=== PATIENT | female | born 2000 | race Two or more races ===

== ENCOUNTER 2019-02-06 07:33 | Inpatient (IN) | payer MEDICAID ==
[2019-02-06] MEDS ORDERED: OXYTOCIN/NORMAL SALINE 20 UNIT/1,000 ML RTUINJ IV PRN ×2 (08:23→21:38)
[2019-02-06] MEDS ORDERED: RINGERS SOLUTION,LACTATED 300 ML IV ONE (08:23)
[2019-02-06] MEDS ORDERED: PENICILLIN G POTASSIUM 5,000,000 UNIT in DEXTROSE 5%-WATER 100 ML IV ONE (08:25)
[2019-02-06] MEDS ORDERED: PENICILLIN G-K 5 MILLION UNIT VIAL ONE ×3 (08:34→17:29)
[2019-02-06] MEDS: RINGERS SOLUTION,LACTATED 1,000 ML IV PRN ×2 (08:38→17:59)
[2019-02-06 08:47] LABS: APPEARANCE,URINE CLEAR; BILIRUBIN,URINE NEGATIVE (NEGATIVE); COLOR,URINE YELLOW; GLUCOSE, URINE 50 mg/dL (NEGATIVE); KETONES,URINE NEGATIVE (NEGATIVE); LEUKOCYTE ESTERASE,URINE NEGATIVE (NEGATIVE); NITRITE,URINE NEGATIVE (NEGATIVE); PROTEIN,URINE NEGATIVE (NEGATIVE); URINE SPECIFIC GRAVITY 1.015; UROBILINOGEN,URINE NEGATIVE mg/dL (<2.0)
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
[2019-02-06 09:10] LABS: URINE AMPHETAMINES SCREEN NEGATIVE; URINE BENZODIAZEPINES SCREEN NEGATIVE; URINE COCAINE SCREEN NEGATIVE; URINE METHADONE SCREEN NEGATIVE; URINE PHENCYCLIDINE SCREEN NEGATIVE
[2019-02-06 09:10] LABS: ABSOLUTE MONOCYTES (AUTO) 0.6 10^3/uL (0.1-1.4); ABSOLUTE NEUT (AUTO) 6.1 10^3/uL (1.7-8.2); BASOPHILS % (AUTO) 0.2 % (0-2); EOSINOPHILS % (AUTO) 0.6 % (0-6); HEMOGLOBIN 10.1 g/dL (12.0-15.5); LYMPHOCYTES % (AUTO) 13.3 % (13-45); MEAN CORPUSCULAR HEMOGLOBIN 28.4 pg (27.0-33.4); MEAN CORPUSCULAR HGB CONC 33.5 g/dL (32.0-36.0); MEAN CORPUSCULAR VOLUME 85 fl (80-97); MONOCYTES % (AUTO) 8.1 % (3-13); PLATELET COUNT 155 10^3/uL (150-450); RED BLOOD COUNT 3.54 10^6/uL (3.72-5.28); RED CELL DISTRIBUTION WIDTH 13.2 % (11.5-14.0); SEGMENTED NEUTROPHILS % (AUTO) 77.8 % (42-78); TOTAL CELLS COUNTED % (AUTO) 100 %; WHITE BLOOD COUNT 7.9 10^3/uL (4.0-10.5)
[2019-02-06] MEDS ORDERED: MISOPROSTOL 0.2 MG TABLET ONE (09:14)
[2019-02-06] MEDS ORDERED: LIDOCAINE 1% INJ-PF (10 MG/ML) 30 ML SDV ONE (09:14)
[2019-02-06] MEDS ORDERED: OXYTOCIN 10 UNIT/ML VIAL ONE (09:14)
[2019-02-06 09:15] LABS: URINE BARBITURATES SCREEN UNCONFIRMED POSITIVE; URINE MARIJUANA (THC) SCREEN UNCONFIRMED POSITIVE
[2019-02-06] MEDS ORDERED: OXYTOCIN/NORMAL SALINE 20 UNIT/1,000 ML RTUINJ ONE (09:15)
[2019-02-06] MEDS: PENICILLIN G POTASSIUM 2,500,000 UNIT in DEXTROSE 5%-WATER 50 ML IV SCH ×3 (12:30→22:39)
[2019-02-06] MEDS ORDERED: BUPIVACAINE HCL 0.25 % INJ/PF (2.5 MG/1 ML) 30 ML VIAL ONE (13:01)
[2019-02-06] MEDS ORDERED: PHENYLEPHRINE HCL INJ/PF 10 MG/1 ML SDV ONE (13:01)
[2019-02-06] MEDS ORDERED: FENTANYL CITRATE INJ/PF 100 MCG/2 ML AMPUL ONE (13:01)
[2019-02-06] MEDS ORDERED: EPHEDRINE SULFATE INJ 50 MG/1 ML AMPULE ONE (13:01)
[2019-02-06] MEDS ORDERED: FENTANYL/BUPIVACAINE/NS/PF 300 MCG/150 ML RTUINJ EPI ONE (13:01)
[2019-02-06] MEDS ORDERED: ACETAMINOPHEN WITH CODEINE #3 TABLET PO PRN (21:38)
[2019-02-06] MEDS ORDERED: MAGNESIUM HYDROXIDE SUSP 30 ML UDCUP PO PRN (21:38)
[2019-02-06] MEDS ORDERED: PROMETHAZINE HCL 25 MG TABLET PO PRN (21:38)
[2019-02-06] MEDS ORDERED: DIPH/PERTUSS(ACELL)/TETANUS VAC/PF 0.5 ML SYR (>=10YO) IM PRN (21:38)
[2019-02-06] MEDS ORDERED: ZOLPIDEM TARTRATE 5 MG TABLET PO PRN (21:38)
[2019-02-06] MEDS ORDERED: MEASLES,MUMPS&RUBELLA VACC/PF 0.5 ML VIAL SUBCUT PRN (21:38)
[2019-02-06] MEDS ORDERED: ACETAMINOPHEN 650 MG SUPP.RECT PR PRN (21:38)
[2019-02-06] MEDS ORDERED: DIPHENHYDRAMINE HCL 25 MG CAPSULE PO PRN (21:38)
[2019-02-06] MEDS ORDERED: PROMETHAZINE HCL 25 MG SUPP.RECT PR PRN (21:38)
[2019-02-06] MEDS ORDERED: PROMETHAZINE HCL INJ 25 MG/1 ML VIAL IV PRN (21:38)
[2019-02-06] MEDS ORDERED: PSEUDOEPHEDRINE HCL 30 MG TABLET PO PRN (21:38)
[2019-02-06] MEDS ORDERED: DIBUCAINE 1% OINTMENT 56 GM TP PRN (21:38)
[2019-02-06] MEDS ORDERED: NA PHOS,M-B/NA PHOS,DI-BA (ADULT) 133 ML ENEMA PR PRN (21:38)
[2019-02-06] MEDS ORDERED: BENZOCAINE/MENTHOL AEROSOL SPRAY 56 ML TOP PRN (21:38)
[2019-02-06] MEDS ORDERED: GLYCERIN/WITCH HAZEL LEAF 1 EACH MED..WIPE TP PRN (21:38)
[2019-02-06] MEDS ORDERED: FAMOTIDINE 20 MG TABLET ONE (22:42)
[2019-02-06] MEDS ORDERED: IBUPROFEN 800 MG TABLET ONE (22:43)
[2019-02-06] MEDS: FAMOTIDINE 20 MG TABLET PO SCH (22:45)
[2019-02-06] MEDS: IBUPROFEN 800 MG TABLET PO SCH (22:45)
--- NOTE | 2019-02-07 00:29 | Delivery Summary ---
Del Sum A-C Datetime Report Generated by CPN: 02/07/2019 00:29 DELIVERY PERSONNEL DELIVERY PERSONNEL: [id number] Delivery Doctor:: Christine Fleming MD Anesthesiologist:: Cora Dumont MD Labor and Delivery Nurse:: Catalina Presley RNpeoplesoft financial developer Nurse:: Adriana Rodriguez RN Repair Weaver/CAPTAIN/AIRLINE PILOT: Janaher Delgado, ST MATERNAL INFORMATION Delivery Anesthesia: Epidural Medications After Delivery: Pitocin Bolus-Please Comment Meds After Delivery Comment: pitocin 20 units in 1 L NS bolusing per order Estimated Blood Loss (ml): 150 Delivery QBL: 150 Delivery QBL Comment: 150 Maternal Complications: None Provider Comments: VMI delivered in JONATHAN presentation. No nuchal but foot cord. Shoulders and body delivered without difficulty. Cord doubly clamped and cut. placenta delivered intact spontaneously. FF at U. right labial laceration repaired for hemostasis. Left labial hemostatic. Good hemostasis. Mother and baby stable upon provider leaving the room. LABOR SUMMARY EDC: 02/11/2019 00:00 No. Babies in Womb: 1 Attempted: No Labor Anesthesia: Epidural LABOR INFORMATION Reason for Induction: Polyhydramnios Onset of Labor: 02/06/2019 13:00 Complete Dilatation: 02/06/2019 20:34 Other Ripening Agents: pitocin Oxytocin: Induction Group B Beta Strep: POSITIVE Antibiotics # of Doses: 3 Antibiotics Time of Last Dose: 1730 Name of Antibiotic Given: PCN Steroids Given: None Reason Steroids Not Administered: Not Applicable MEMBRANES Membranes Rupture Method: Artificial Rupture of Membranes: 02/06/2019 12:19 Length of Rupture (hr): 8.68 Amniotic Fluid Color: Clear Amniotic Fluid Amount: Small Amniotic Fluid Odor: Foul STAGES OF LABOR Stage 1 hr: 7 Stage 1 min: 34 Stage 2 hr: 0 Stage 2 min: 26 Stage 3 hr: 0 Stage 3 min: 2 Total Time in Labor hr: 8 Total Time in Labor min: 2 VAGINAL DELIVERY Episiotomy: None Laceration #1: Vaginal Laceration Extension #1: N/A Laceration Repair: Yes Laceration Repair Note: right labial repaired. left labial/vaginal hemostatic. Sponge Count Correct: N/A Sharps Count Correct: N/A CSECTION DELIVERY Primary Indication: N/A Secondary Indication: N/A CSection Incidence: N/A Labor: N/A Elective: N/A CSection Incision: N/A BABY A INFORMATION Infant Delivery Date/Time: 02/06/2019 21:00 Method of Delivery: Vaginal Born in Route : No : N/A Forceps: N/A Vacuum Extraction: N/A Shoulder Dystocia : No PRESENTATION/POSITION BABY A Presentation: Cephalic Cephalic Presentation: Vertex Vertex Position: Left Occipital Anterior Breech Presentation: N/A PLACENTA INFORMATION BABY A Placenta Delivery Time : 02/06/2019 21:02 Placenta Method of Delivery: Spontaneous Placenta Status: Delivered SCORES BABY A Heart Rate 1 min: >100 bpm Resp Effort 1 min: Good Cry Reflex Irritability 1 min: Cough or Sneeze or Pulls Away Muscle Tone 1 min: Active Motion Color 1 min: Blue/Pale Resuscitation Effort 1 min: Tactile Stimulation SCORE 1 MIN: 8 Heart Rate 5 min: >100 bpm Resp Effort 5 min: Good Cry Reflex Irritability 5 min: Cough or Sneeze or Pulls Away Muscle Tone 5 min: Active Motion Color 5 min: Blue/Pale Resuscitation Effort 5 min: Tactile Stimulation SCORE 5 MIN: 8 INFORMATION BABY A Gestational Age at Delivery: 39.2 Gestational Status: Full Term- 39- 40.6 Weeks Outcome : Liveborn Condition : Stable Infant Sex: Male IDENTIFICATION BABY A Infant Verification Date/Time: 02/06/2019 21:21 ID Band Number: [id number] Mother's Name Verified: Yes Infant RN Verifying Infant: Lilibeth Rodriguez RN Additional Verifying Personnel: Jeison St RN WEIGHT/LENGTH BABY A Birthweight (gm): 3830 Weight (lb): 8 Weight (oz): 7 Length (in): 20.50 Length (cm): 52.07 CORD INFORMATION BABY A No. Cord Vessels: 3 Nuchal Cord : N/A Cord Blood Taken: Yes-For Storage (Mom's Blood type +) Infant Suction: Mouth; Nose ASSESSMENT BABY A Skin to Skin: Yes BABY B INFORMATION : N/A SIGNATURES Signature: Electronically signed by Christine Fleming MD ([facility] [place]) on 02/06/2019 at 21:51 with User ID: [email or web address] : I was personally available for consultation and serving as supervising physician for the MLP.
[2019-02-07] MEDS: IBUPROFEN 800 MG TABLET PO SCH ×3 (06:23→22:18)
[2019-02-07 07:28] LABS: HEMATOCRIT 29.9 % (36.0-47.0); HEMOGLOBIN 9.9 g/dL (12.0-15.5); MEAN CORPUSCULAR HEMOGLOBIN 28.2 pg (27.0-33.4); MEAN CORPUSCULAR HGB CONC 33.1 g/dL (32.0-36.0); MEAN CORPUSCULAR VOLUME 85 fl (80-97); PLATELET COUNT 139 10^3/uL (150-450); RED BLOOD COUNT 3.52 10^6/uL (3.72-5.28); RED CELL DISTRIBUTION WIDTH 13.1 % (11.5-14.0); WHITE BLOOD COUNT 11.5 10^3/uL (4.0-10.5)
[2019-02-07] MEDS: PENICILLIN G POTASSIUM 2,500,000 UNIT in DEXTROSE 5%-WATER 50 ML IV SCH (09:25)
[2019-02-07] MEDS: FERROUS SULFATE 325 MG TABLET PO SCH ×2 (09:28→17:33)
[2019-02-07] MEDS: ACETAMINOPHEN WITH CODEINE #3 TABLET PO PRN (09:28)
[2019-02-07] MEDS: DOCUSATE SODIUM 100 MG CAPSULE PO SCH ×2 (09:28→17:33)
[2019-02-07] MEDS: PRENATAL VITAMIN W DHA CAPSULE PO SCH (09:28)
[2019-02-07] MEDS: SENNOSIDES/DOCUSATE 8.6-50 MG 1 EACH TABLET PO SCH (09:28)
[2019-02-07] MEDS: FAMOTIDINE 20 MG TABLET PO SCH ×2 (09:28→22:18)
--- NOTE | 2019-02-07 11:28 | PDOC PROGRESS REPORT ---
Subjective-OB Progress Note for:: 02/07/19 Subjective: Pt doing well, no concerns. She reports light bleeding, reg diet and voiding without difficulty. Physical Exam (OB) Vital Signs: Temp Pulse Resp BP Pulse Ox 98.6 F 69 18 114/62 100 02/07/19 07:52 02/07/19 07:52 02/07/19 07:52 02/07/19 07:52 02/07/19 07:52 Intake & Output 02/06/19 02/07/19 02/08/19 06:59 06:59 05:59 Intake Total 1000 Balance 1000 Weight 89.3 kg - PIH/Pre-Eclampsia Clonus: Negative Headache: Absent Epigastric Pain: No Visual Changes: No - Lochia Lochia Amount: Scant < 10 ml Lochia Color: Rubra/Red - Abdomen Description: Soft, Round Hernia Present: No Fundal Description: Firm Fundal Height: u/u - u/2 Objective-Diagnostic Laboratory: 02/07/19 06:52 02/07/19 06:52 WBC 11.5 H RBC 3.52 L Hgb 9.9 L Hct 29.9 L MCV 85 MCH 28.2 MCHC 33.1 RDW 13.1 Plt Count 139 L Assessment and Plan(PN) - Assessment and Plan (1) Carrier of group B Streptococcus Is this a current diagnosis for this admission?: Yes (2) Obstetric labial laceration, delivered, current hospitalization Is this a current diagnosis for this admission?: Yes (3) Polyhydramnios affecting in third trimester Is this a current diagnosis for this admission?: Yes (4) Vaginal delivery Is this a current diagnosis for this admission?: Yes - Time Spent with Patient Time with patient: Less than 15 minutes Medications reviewed and adjusted accordingly: Yes - Disposition Anticipated Discharge: Home Within: within 24 hours
[2019-02-08] MEDS: ACETAMINOPHEN WITH CODEINE #3 TABLET PO PRN (04:47)
[2019-02-08] MEDS: IBUPROFEN 800 MG TABLET PO SCH (05:14)
[2019-02-08 08:09] VITALS: BP 114/69
--- NOTE | 2019-02-08 10:10 | PDOC DISCHARGE SUMMARY ---
Impression - Admit/DC Date/PCP Admission Date/Primary Care Provider: 02/06/19 07:33 Discharge Date: 02/08/19 - Discharge Diagnosis (1) Carrier of group B Streptococcus Is this a current diagnosis for this admission?: Yes (2) Obstetric labial laceration, delivered, current hospitalization Is this a current diagnosis for this admission?: Yes (3) Polyhydramnios affecting in third trimester Is this a current diagnosis for this admission?: Yes (4) Vaginal delivery Is this a current diagnosis for this admission?: Yes - Additional Information Resuscitation Status: Full Code Discharge Diet: Regular Discharge Activity: Balance Activity w/Rest, Pelvic Rest Prescriptions: Ibuprofen [Motrin 800 mg Tablet] 800 mg PO Q8HP PRN #60 tablet PRN Reason: Home Medications: Vits96/Iron Fum/Folic [ Tablet] 1 each PO DAILY 02/06/19 Ibuprofen [Motrin 800 mg Tablet] 800 mg PO Q8HP PRN #60 tablet 02/08/19 Results Laboratory Results: WBC 11.5 10^3/uL (4.0-10.5) H 02/07/19 06:52 RBC 3.52 10^6/uL (3.72-5.28) L 02/07/19 06:52 Hgb 9.9 g/dL (12.0-15.5) L 02/07/19 06:52 Hct 29.9 % (36.0-47.0) L 02/07/19 06:52 MCV 85 fl (80-97) 02/07/19 06:52 MCH 28.2 pg (27.0-33.4) 02/07/19 06:52 MCHC 33.1 g/dL (32.0-36.0) 02/07/19 06:52 RDW 13.1 % (11.5-14.0) 02/07/19 06:52 Plt Count 139 10^3/uL (150-450) L 02/07/19 06:52 Lymph % (Auto) 13.3 % (13-45) 02/06/19 08:55 [place] % (Auto) 8.1 % (3-13) 02/06/19 08:55 Eos % (Auto) 0.6 % (0-6) 02/06/19 08:55 Baso % (Auto) 0.2 % (0-2) 02/06/19 08:55 Absolute Neuts (auto) 6.1 10^3/uL (1.7-8.2) 02/06/19 08:55 Absolute Lymphs (auto) 1.0 10^3/uL (0.5-4.7) 02/06/19 08:55 Absolute Monos (auto) 0.6 10^3/uL (0.1-1.4) 02/06/19 08:55 Absolute Eos (auto) 0.0 10^3/uL (0.0-0.6) 02/06/19 08:55 Absolute Basos (auto) 0.0 10^3/uL (0.0-0.2) 02/06/19 08:55 Seg Neutrophils % 77.8 % (42-78) 02/06/19 08:55 Urine Color YELLOW 02/06/19 08:00 Urine Appearance CLEAR 02/06/19 08:00 Urine pH 7.0 (5.0-9.0) 02/06/19 08:00 Ur Specific [place] 1.015 02/06/19 08:00 Urine Protein NEGATIVE mg/dL (NEGATIVE) 02/06/19 08:00 Urine Glucose (UA) 50 mg/dL (NEGATIVE) H 02/06/19 08:00 Urine Ketones NEGATIVE mg/dL (NEGATIVE) 02/06/19 08:00 Urine Blood NEGATIVE (NEGATIVE) 02/06/19 08:00 Urine Nitrite NEGATIVE (NEGATIVE) 02/06/19 08:00 Urine Bilirubin NEGATIVE (NEGATIVE) 02/06/19 08:00 Urine Urobilinogen NEGATIVE mg/dL (<2.0) 02/06/19 08:00 Ur Leukocyte Esterase NEGATIVE (NEGATIVE) 02/06/19 08:00 Urine WBC (Auto) 2 /HPF 02/06/19 08:00 Urine RBC (Auto) 0 /HPF 02/06/19 08:00 Urine Bacteria (Auto) TRACE /HPF 02/06/19 08:00 Urine Mucus (Auto) RARE /LPF 02/06/19 08:00 Urine Ascorbic Acid NEGATIVE (NEGATIVE) 02/06/19 08:00 Urine Opiates Screen NEGATIVE 02/06/19 08:00 Urine Methadone Screen NEGATIVE 02/06/19 08:00 Ur Barbiturates Screen UNCONFIRMED POSITIVE 02/06/19 08:00 Ur Phencyclidine Scrn NEGATIVE 02/06/19 08:00 Ur Amphetamines Screen NEGATIVE 02/06/19 08:00 U Benzodiazepines Scrn NEGATIVE 02/06/19 08:00 Urine Cocaine Screen NEGATIVE 02/06/19 08:00 U Marijuana (THC) Screen UNCONFIRMED POSITIVE 02/06/19 08:00 RPR NONREACTIVE (NONREACTIVE) 02/06/19 08:55 Blood Type B POSITIVE 02/06/19 08:55 Antibody Screen NEGATIVE 02/06/19 08:55
[2019-02-08] MEDS: SENNOSIDES/DOCUSATE 8.6-50 MG 1 EACH TABLET PO SCH (10:46)
[2019-02-08] MEDS: PRENATAL VITAMIN W DHA CAPSULE PO SCH (10:46)
[2019-02-08] MEDS: FERROUS SULFATE 325 MG TABLET PO SCH (10:46)
[2019-02-08] MEDS: FAMOTIDINE 20 MG TABLET PO SCH (10:46)
[2019-02-08] MEDS: DOCUSATE SODIUM 100 MG CAPSULE PO SCH (10:46)
== END 2019-02-08 13:10 | disposition home or self-care (01) | DRG 807 ==
LOC: LR 07:33 → 2S 23:29
PROVIDERS: ADMIT Obstetrics & Gynecology Gynecology; ATTEND Student in an Organized Health Care Education/Training Program
PROC: 10E0XZZ Delivery of Products of Conception, External Approach (ICD-10-PCS; principal; 2019-02-06)
PROC: 0HQ9XZZ Repair Perineum Skin, External Approach (ICD-10-PCS; 2019-02-06)
PROC: 10907ZC Drainage of Amniotic Fluid, Therapeutic from Products of Conception, Via Natural or Artificial Opening (ICD-10-PCS; 2019-02-06)
DX: O40.3XX0 Polyhydramnios, third trimester, not applicable or unspecified (principal); O99.824 Streptococcus B carrier state complicating childbirth; Z37.0 Single live birth; Z3A.32 32 weeks gestation of pregnancy; O70.0 First degree perineal laceration during delivery; Z28.21 Immunization not carried out because of patient refusal
CPT/HCPCS: 36415; 80307; 80349; 81001; 85025; 85027; 86592; 86850; 86900; 86901; G0480; J2370; J2540; J2590; J3010; J3490